=== PATIENT | male | born 1945 | race Two or more races ===

== ENCOUNTER 2024-10-27 08:09 | Emergency (ER) | payer OTHER ==
[~2024-10-27] VITALS: Ht 180.3 cm; Wt 84.0 kg
[2024-10-27 08:13] VITALS: O2SAT 100
[2024-10-27 08:16] VITALS: BP 129/73; PULSE 84; RESP 18; TEMP 37; O2SAT 96
[2024-10-27 08:46] LABS: BASOPHILS % 1.1 % (0.0-2.0); HEMATOCRIT. 45.4 % (42.0-52.0); HEMOGLOBIN. 15.7 g/dL (14.0-18.0); LYMPHOCYTES % 12.2 % (20.0-50.0); MEAN CORPUSCULAR HEMOGLOBIN 32.6 pg (28.0-32.0); MEAN CORPUSCULAR HGB CONC 34.6 g/dL (31.0-37.0); MEAN CORPUSCULAR VOLUME 94.4 fL (80.0-94.0); MEAN PLATELET VOLUME 8.2 fl (7.4-10.4); MONOCYTES % 6.7 % (2.0-8.0); PLATELET 203 x1000/uL (130-400); RED BLOOD CELL COUNT 4.81 mill/uL (4.7-6.1); RED CELL DISTRIBUTION WIDTH 13.7 % (11.6-14.6); WHITE BLOOD COUNT 10.2 x1000/uL (4.5-11.0)
[2024-10-27 08:55] LABS: CHLORIDE 106 mEq/L (98-107); POTASSIUM 3.7 mEq/L (3.5-5.1); SODIUM 141 mEq/L (136-145)
[2024-10-27 08:56] LABS: CALCIUM 9.8 mg/dL (8.7-10.4); CARBON DIOXIDE 27 mEq/L (21-32)
[2024-10-27 09:01] LABS: CREATININE 1.5 mg/dL (0.6-1.3); GLUCOSE 124 mg/dL (70-105); UREA NITROGEN BLOOD 20 mg/dL (9-23)
[2024-10-27 09:03] LABS: TROPONIN I HIGH SENSITIVITY 15 ng/L (3.0-53)
== END 2024-10-27 11:17 | disposition home or self-care (01) ==
LOC: ER 08:09
DX: R06.83 Snoring (principal); R53.83 Other fatigue; Z98.890 Other specified postprocedural states; Z90.49 Acquired absence of other specified parts of digestive tract; Z00.00 Encounter for general adult medical examination without abnormal findings; Z68.25 Body mass index [BMI] 25.0-25.9, adult
CPT/HCPCS: 36415; 80048; 84484; 85025; 93005; 99284